=== PATIENT | female | born 1960 | race Caucasian/White ===

== ENCOUNTER 2016-06-14 12:36 | Emergency (ER) | payer OTHER ==
[~2016-06-14] VITALS: Ht 157.5 cm; Wt 76.6 kg
[~2016-06-14 12:36] MED LIST: HYDR-3240 PO; HYDROXYCUT PO; IBUP-1222 PO; ONDA4TAB10 PO
[2016-06-14 12:49] VITALS: BP 123/84
== END 2016-06-14 13:39 | disposition home or self-care (01) ==
LOC: ED 13:37
DX: T20.17XA Burn of first degree of neck, initial encounter (principal); T21.11XA Burn of first degree of chest wall, initial encounter; T31.0 Burns involving less than 10% of body surface; X12.XXXA Contact with other hot fluids, initial encounter; Y93.89 Activity, other specified; Y92.69 Other specified industrial and construction area as the place of occurrence of the external cause; Y99.8 Other external cause status
CPT/HCPCS: 99283